=== PATIENT | female | born 1965 | race Caucasian/White ===

== ENCOUNTER → 2024-08-09 | Day surgery (SDC) | payer BC ==
[2024-08-02 10:21] LABS: Basophils # (auto) 0 10 ^3/uL (0-0.2); Basophils % (auto) 0.7 % (0.0-2.0); Eosinophils # (auto) 0.2 10 ^3/uL (0-0.8); Hematocrit 46.3 % (36.0-46.0); Hemoglobin 15.8 g/dL (12.2-16.2); Lymphocytes # (auto) 2.1 10 ^3/uL (0.4-5.4); Lymphocytes % (auto) 36.6 % (10.0-50.0); Mean Corpuscular Hemoglobin 31.8 pg (28.0-32.0); Mean Corpuscular Volume 93.4 fL (80.0-100.0); Monocytes # (auto) 0.4 10 ^3/uL (0-1.3); Monocytes % (auto) 6.9 % (0.0-12.0); Neutrophils # (auto) 3.1 10 ^3/uL (1.6-8.6); Neutrophils % (auto) 52.8 % (37.0-80.0); Platelet Count (auto) 232 10^3/uL (140-450); Red Blood Cells 4.96 10^6/uL (4.0-5.20); Red Cell Distribution Width 12.4 % (11.8-14.3); White Blood Cell 5.8 10^3/uL (4.4-10.8)
[2024-08-02 10:33] LABS: INR 1.02 (0.9-1.15); Partial Thromboplastin Time 26.5 SEC (24.5-34.5); Prothrombin Time 10.8 sec (9.3-11.8)
[2024-08-02 11:04] LABS: Alanine Aminotransferase 30 U/L (7-40); Albumin 4.5 g/dL (3.2-4.8); Alkaline Phosphatase 56 U/L (46-116); Anion Gap 6 (5-15); BUN/Creatinine Ratio 16.2 (10.0-20.0); Blood Urea Nitrogen 12 mg/dL (9-23); Carbon Dioxide 27 mmol/L (20-31); Glucose 97 mg/dL (74-106); Potassium 4.1 mmol/L (3.5-5.1); Sodium 141 mmol/L (136-145)
[2024-08-02 11:05] LABS: Aspartate Aminotransferase 23 U/L (13-40); Total Protein 7.1 g/dL (5.7-8.2)
[2024-08-02 11:15] LABS: Bilirubin, Total 1.5 mg/dL (0.2-1.0); Calcium 10.5 mg/dL (8.7-10.4); Chloride 108 mmol/L (98-107)
[~2024-08-09] VITALS: Ht 167.6 cm; Wt 81.6 kg
[~2024-08-09] MED LIST: CETI10TA2 PO; CHOL20004 PO; MAGN1CAP5; PSYL0.526 PO; SELE200T23 OR; SODIUM CHLORIDE LOCK 10 ML ONE; THYR120T PO; [UNRECOGNIZED DRUG - CODE] PO
[2024-08-09] MEDS: diphenhdrAMINE HCL 50 MG/1 ML VL ONE (10:36)
[2024-08-09] MEDS: fentaNYL CITRATE 100 MCG/2 ML VL ONE (10:36)
[2024-08-09] MEDS: MIDAZOLAM HCL 5 MG/ML-1ML VIAL ONE (10:36)
[2024-08-09 10:52] VITALS: TEMP 98.7; O2SAT 94
--- NOTE | 2024-08-09 10:58 | DVHOP2 ---
Operative Report DATE OF OPERATION: 08/09/24 PROCEDURE: Colonoscopy with cold snare polypectomy. PREOPERATIVE INDICATION: The patient is a 59 -year-old female undergoing colonoscopy for colon cancer screening POSTOPERATIVE DIAGNOSES: 1. Patient had a 6-8mm benign-appearing cecal polyp that was seen and removed completely via cold snare polypectomy 2. Trace internal hemorrhoids otherwise normal examination up to the cecum and terminal ileum PROCEDURE PERFORMED BY: Lady Corrales M.D. SCOPE: Olympus videocolonoscope. ASA CLASS: 2. PREOPERATIVE MEDICATIONS: Versed 4 mg, Fentanyl 100 mcg, Benadryl 50 mg PROCEDURE IN DETAIL: After obtaining an informed consent, the patient was placed on left lateral decubitus position. She was then sedated with the above medications. A rectal examination was performed that was normal. The colonoscope was then passed through the anus into the rectosigmoid and through the descending, transverse, and ascending colon up to the cecum with visualization of the appendiceal orifice, base of the cecum and the i leocecal valve. The colonoscope was then withdrawn. The distal 5-10 cm of the terminal ileum were normal In the base of the cecum there was a 6-8 mm benign-appearing polyp. This was removed completely via cold snare polypectomy No other polyps or masses were seen. There was no colitis or diverticular disease. On retroflexion and straight on view she had trace internal hemorrhoids The patient tolerated the procedure well without difficulty. WITHDRAWAL TIME: 6 minutes QUALITY OF THE PREP: [place] Bowel Prep score: 9. COMPLICATIONS : None SPECIMENS: Cecal polyp DISPOSITION: Stable D/C to home PLAN: 1. Repeat colonoscopy base on biopsy result likely in five years 2. Resume GI soft diet advance as tolerated 3. Local anorectal hemorrhoidal care 4. Outpatient follow up with me in 4-6 weeks to review results and discuss further management LADY CORRALES MD Aug 09, 2024 10:58
[2024-08-09 11:22] VITALS: BP 146/95; PULSE 76; RESP 15; O2SAT 96
== END | disposition home or self-care (01) ==
LOC: GI 09:34
PROVIDERS: ATTEND Internal Medicine Gastroenterology
DX: Z12.11 Encounter for screening for malignant neoplasm of colon (principal); K64.8 Other hemorrhoids; D12.0 Benign neoplasm of cecum; Z98.890 Other specified postprocedural states; Z86.0100 Personal history of colon polyps, unspecified; Z88.8 Allergy status to other drugs, medicaments and biological substances
CPT/HCPCS: 36415; 45385; 80053; 85025; 85610; 85730; 88305; J1200; J2250; J3010; J7030; 99152